=== PATIENT | female | born 1945 | race Hispanic/Latino ===

== ENCOUNTER 2017-07-04 06:00 | Emergency (ER) | payer MEDICARE, MEDICAID ==
[2017-07-04 06:00] VITALS: BMI 28.1
--- NOTE | 2017-07-04 06:31 | C.PDOC ---
History Of Present Illness 72 yo female BIBA from [facility] at [facility] after pt sustained mechanical fall and hit the head. Pt reports, " went to bathroom and probably trapped in blanket, fell down, hit the head on sink". Pt also c/o some discomfort to Right 5th finger " trying to break fall with my Right hand". Otherwise, pt denies LOC, syncope, denies severe headache, dizziness, visual changes, focal deficits, neck pain, CP, SOB, dyspnea, diaphoresis, palpitation, abd. pain, N/V, back pain, denies deformity, weakness, sensory or vascular deficits to B/L UEs and LEs. At the time of evaluation, pt is AAO#3, not in nay apparent distress. - HPI Time Seen by Provider: 07/04/17 06:24 Chief Complaint (Nursing): Trauma History Per: Patient, EMS Past Medical History Reviewed: Historical Data, Nursing Documentation, Vital Signs Vital Signs: Last Vital Signs Temp 97.4 F L 07/04/17 06:05 Pulse 76 07/04/17 06:05 Resp 16 07/04/17 06:05 BP 137/77 07/04/17 06:05 Pulse Ox 95 07/04/17 06:31 - Medical History PMH: Anxiety, Bipolar Disorder, Depression, HTN, Hyperlipidemia Denies: Chronic Kidney Disease Surgical History: Denies: Pacemaker - [facility] Procedures CYSTOSCOPY NEC (06/06/13) ELECTROSHOCK THERAPY NEC (09/21/14) LG-TO-LG BOWEL ANASTOM (04/18/13) OPEN AND OTHER SIGMOIDECTOMY (04/18/13) OTHER ELECTROCONVULSIVE THERAPY (12/14/14) OTHER INSTILLATION (04/18/13) OTHER OOPHOROTOMY (04/18/13) PERCUTANEOUS ABDOMINAL DRAINAGE (04/18/13) REMOV URETERAL DRAIN (06/06/13) URETERAL CATHETERIZATION (04/18/13) VENOUS CATHETERIZATION NEC (04/18/13) Family History: States: No Known Family Hx - Social History Hx Tobacco Use: No Hx Alcohol Use: No Hx Substance Use: No - Immunization History Hx Tetanus Toxoid Vaccination: No Review Of Systems Except As Marked, All Systems Reviewed And Found Negative. Constitutional: Negative for: Fever Eyes: Negative for: Vision Change ENT: Negative for: Ear Discharge, Nose Discharge Cardiovascular: Negative for: Chest Pain, Palpitations, Edema, Light Headedness Respiratory: Negative for: Shortness of Breath Gastrointestinal: Negative for: Nausea, Vomiting, Abdominal Pain, Diarrhea Musculoskeletal: Positive for: Hand Pain. Negative for: Neck Pain, Back Pain Skin: Positive for: Lesions, Bruising Neurological: Negative for: Weakness, Numbness, Altered Mental Status, Dizziness Physical Exam - Physical Exam Appears: Well, Non-toxic, No Acute Distress Skin: Normal Color, Warm, Dry Head: Normacephalic, Laceration (Right eyebrow superficial laceration 2 cm, linear, mild bloody oozing noted. No palpable deformity.) Eye(s): bilateral: PERRL, EOMI (no pain or limitation on extraocular movement.) , left: Other (periorbital ecchymoses with mild edema. No palpable deformity.) Ear(s): Bilateral: Normal Nose: No Flaring, No Discharge, No Deformity, No Tenderness Oral Mucosa: Moist, No Drooling Tongue: No Laceration Lips: No Laceration Throat: No Drooling Neck: Trachea Midline, No Midline Cervical Tenderness, No Paracervical Tenderness, No Step Off Deformity, Supple Chest: Symmetrical, No Deformity Cardiovascular: Rhythm Regular, No Murmur Respiratory: No Decreased Breath Sounds, No Accessory Muscle Use, No Stridor, No Wheezing Gastrointestinal/Abdominal: Soft, No Tenderness, No Distention, No Guarding Back: No Vertebral Tenderness, No Paraspinal Tenderness Extremity: Normal ROM (B/L UEs and LEs), Tenderness (mild over Right 5th fnger, no deformity, no neurovascular deficist distally.), No Deformity, No Swelling Neurological/Psych: Oriented x3, Normal Speech, Normal Motor, Normal Sensation, Normal Reflexes ED Course And Treatment O2 Sat by Pulse Oximetry: 95 Pulse Ox Interpretation: Normal Progress Note: case discussed with JACQUELINE Trammell, sign out: blood owrk, imaging, re-eval, dispo. Laceration - Laceration Repair Right eyebrow Wound Length (In cm): 2cm Description Of Wound: Linear Wound Examination: Irrigated With Saline, No FB With Wound Exploration Wound Closure: Skin Glue Wound Complexity: Simple Disposition - Disposition Disposition Time: 06:48 Condition: STABLE Forms: Tango (Nigerien) - Clinical Impression Clinical Impression: Head injury, Finger contusion, Eyebrow laceration
[2017-07-04 06:46] LABS: BASO % 0.4 % (0.0-2.0); EOS # 0.4 K/uL (0.0-0.7); EOS % 7.1 % (0.0-4.0); HEMOGLOBIN 12.1 g/dL (11.0-16.0); LYMPH # 2.1 K/uL (1.0-4.3); LYMPH % 39.5 % (20.0-40.0); MEAN CORPUSCULAR HEMOGLOBIN 31.1 pg (27.0-31.0); MEAN CORPUSCULAR HGB CONC 33.8 g/dL (33.0-37.0); MEAN PLATELET VOLUME 8.2 fL (7.2-11.7); MONO # 0.6 K/uL (0.0-0.8); MONO % 10.6 % (0.0-10.0); NEUT # 2.2 K/uL (1.8-7.0); NEUT % 42.4 % (50.0-75.0); RBC 3.9 Mil/uL (3.80-5.20); WHITE BLOOD COUNT 5.3 K/uL (4.8-10.8)
[2017-07-04] MEDS ORDERED: Tetanus/Diphtheria Toxoids 0.5 ml Syringe IM ONE ×2 (06:48→07:02)
[2017-07-04 07:09] LABS: PROTHROMBIN TIME 10.4 SECONDS (9.7-12.2)
[2017-07-04 07:51] LABS: ALB/GLOB RATIO 1.4 (1.0-2.1); ALBUMIN 4.4 g/dL (3.5-5.0); CALCIUM 10.3 mg/dl (8.6-10.4)
--- NOTE | 2017-07-04 10:00 | CT ---
PROCEDURE: CT HEAD WITHOUT CONTRAST. HISTORY: head injury, fall COMPARISON: None available. TECHNIQUE: Axial computed tomography images were obtained through the head/brain without intravenous contrast. Radiation dose: Total exam DLP = 1321.46 mGy-cm. This CT exam was performed using one or more of the following dose reduction techniques: Automated exposure control, adjustment of the mA and/or kV according to patient size, and/or use of iterative reconstruction technique. FINDINGS: HEMORRHAGE: No acute parenchymal subarachnoid nor extra-axial BRAIN: Mild diffuse/confluent chronic periventricular white matter ischemic changes seen extending peripherally into the deep and subcortical white matter both cerebral hemispheres. Moderate -significant volume loss VENTRICLES: There is dilatation of the 3rd and lateral ventricles however the right lateral ventricle is larger than the left likely due to asymmetric volume loss. CALVARIUM: There are no acute calvarial fractures. Mild right periorbital/supraorbital soft tissue swelling. PARANASAL SINUSES: There is a complete opacification of the left chamber sphenoid sinus with hyperdense secretions possibly inspissated. . MASTOID AIR CELLS: Unremarkable as visualized. No inflammatory changes. OTHER FINDINGS: None. IMPRESSION: No acute intracranial hemorrhage. Mild chronic white matter ischemic changes. Central volume loss with asymmetric dilatation of the lateral ventricles right larger than left. . Mild periorbital/supraorbital soft tissue swelling. . Complete opacification left chamber sphenoid sinus. The secretions within the left chamber sphenoid sinus are hyperdense possibly a inspissated
--- NOTE | 2017-07-04 10:11 | CT ---
PROCEDURE: CT scan of the orbits dated 07/04/2017 HISTORY: Right orbital injury TECHNIQUE: Helical/transaxial CT images of the orbits were obtained. Coronal and sagittal reformats were generated. Radiation dose: Total exam DLP = 577.65 mGy-cm. This CT exam was performed using one or more of the following dose reduction techniques: Automated exposure control, adjustment of the mA and/or kV according to patient size, and/or use of iterative reconstruction technique. . FINDINGS: The current study re- demonstrates mild right periorbital soft tissue swelling that extends into the supraorbital and right lateral periorbital soft tissues. No evidence of acute displaced orbital fractures. The remaining visualized maxillofacial skeletal structures appear intact. The globes are intact and lenses appropriately located. There are no retrobulbar hemorrhages or collections. Optic nerves and extraocular musculature unremarkable. There is complete opacification left chamber sphenoid sinus with hyperdense material likely representing inspissated mucosal secretions however there is bowing of the medial wall of the sphenoid sinus suggesting underlying mucocele formation. ENT consultation recommended. The remaining visualized paranasal sinuses are clear. No fluid levels seen to suggest acute hemorrhage or sinusitis. IMPRESSION: No evidence of acute maxillofacial skeletal fractures. Mild periorbital including lateral and supraorbital soft tissue swelling. There is opacification of the left chamber sphenoid sinus with hyperdense material consistent with inspissated mucosal secretions however given the presence of a bowing of the medial wall mucocele development is suspected. ENT consultation recommended.
[2017-07-04 11:53] VITALS: PULSE 79; TEMP 98
--- NOTE | 2017-07-04 12:20 | RAD ---
PROCEDURE: Right small finger radiograph dated 07/04/2017 HISTORY: injury COMPARISON: None. TECHNIQUE: AP radiograph of the right hand, as well as spot oblique and lateral images of small finger were obtained. FINDINGS: RIGHT SMALL FINGER: No definitive evidence of acute displaced fracture nor dislocation. The osseous structures appear grossly intact. No cortical destructive changes. JOINTS: There appears to be some mild degenerative changes at the level of the greater multangular/1st metacarpal articulation. SOFT TISSUES: Normal. OTHER FINDINGS: None. IMPRESSION: No evidence of acute displaced fracture nor dislocation. If symptoms persist or occult fracture suspected clinically since recommend repeat radiographs in 7-10 days as most fractures should become radiographically evident in this timeframe
[2017-07-04 14:50] VITALS: BP 129/80; RESP 18; O2SAT 100
== END 2017-07-04 14:54 | disposition home or self-care (01) ==
LOC: C.ER 06:00
DX: S01.111A Laceration without foreign body of right eyelid and periocular area, initial encounter (principal); S60.051A Contusion of right little finger without damage to nail, initial encounter; W18.30XA Fall on same level, unspecified, initial encounter; Y92.121 Bathroom in nursing home as the place of occurrence of the external cause